=== PATIENT | male | born 1965 | race Caucasian/White ===

== ENCOUNTER 2020-02-04 11:39 | Outpatient (CLI) | payer BC ==
[~2020-02-04 11:39] MED LIST: Iopamidol 370 76% 100 ML VIAL ONE
--- NOTE | 2020-02-04 13:01 | CT ---
CT abdomen with IV contrast HISTORY: Chronic renal disease. Evaluate renal volume. COMPARISON: 12/11/2014. FINDINGS: Lung bases are clear. Metallic leads associated with cardiac electronic device are partiall y visualized. Liver is markedly enlarged, predominantly replaced and expanded by innumerable cysts. The largest is in the right liver lobe measuring up to 11.2 cm. Small amount of pneumobilia within the central common duct. Gallbladder is not visualized and is likely obscured by the hepatic cysts. No evidence of bowel obstruction. Spleen is unremarkable. Kidneys are also completely replaced by cysts and enlarged. The largest cyst is at the superior pole of the left kidney, measuring up to 8.9 cm. Subtle hyperdense material at the expected location of the calyces of the posterior aspect of each kidney is favored to represent early excretion of contras t material. The right kidney measures up to 19.4 cm length by 10.0 cm x 8.7 cm width and depth. Left kidney measures up to 20.8 cm length by 11.4 cm x 9.1 cm width and depth. The pelvis was not imaged. IMPRESSION : Polycystic kidney disease with prominent enlargement of the kidneys and liver. Renal volumes: Right: 883 cc Left: 1129 cc
== END 2020-02-04 11:40 | disposition home or self-care (01) ==
LOC: MADLAB 11:39
PROVIDERS: ATTEND Internal Medicine Nephrology
DX: N18.30 Chronic kidney disease, stage 3 unspecified (principal); Q61.3 Polycystic kidney, unspecified; R16.0 Hepatomegaly, not elsewhere classified; N28.81 Hypertrophy of kidney
CPT/HCPCS: 36415; 74160; 82565; Q9967